=== PATIENT | female | born 2000 | race African-American/Black ===

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

== ENCOUNTER 2018-06-22 09:02 | Emergency (ER) | payer MEDICAID ==
[~2018-06-22] VITALS: Ht 165.1 cm; Wt 62.0 kg
[2018-06-22] MEDS ORDERED: SODIUM CHLORIDE 0.9% 1,000 ML IV ONE (09:54)
[2018-06-22] MEDS ORDERED: ONDANSETRON HCL 4MG/2ML INJ IV STA (10:23)
[2018-06-22] MEDS ORDERED: SODIUM CHLORIDE 0.9% 1000ML BAG (SEPSIS BOLUS) IV ONE (10:30)
[2018-06-22] MEDS ORDERED: KETOROLAC 30MG/ML VIAL IV ONE (11:15)
[2018-06-22] MEDS ORDERED: ACETAMINOPHEN 325MG TABLET PO ONE (11:15)
[2018-06-22 11:22] LABS: HEMATOCRIT. 39.4 % (36.0-48.0); HEMOGLOBIN. 13.4 g/dL (12.0-16.0); MEAN PLATELET VOLUME 10.1 fl (7.4-10.4); PLATELET 190 x1000/uL (130-400); RED BLOOD CELL COUNT 4.33 mill/uL (4.2-5.4); RED CELL DISTRIBUTION WIDTH 12.5 % (11.6-14.6)
[2018-06-22 11:24] LABS: CHLORIDE 105 mEq/L (98-107)
[2018-06-22 11:28] LABS: ETHANOL BLOOD < 10 mg/dL
[2018-06-22 11:29] LABS: HCG SCREEN NEGATIVE
[2018-06-22 11:32] LABS: CREATINE KINASE 58 IU/L (26-192); INR 1.1
[2018-06-22 11:35] LABS: CREATINE KINASE MB FRACTION < 1.0 ng/mL (0.5-3.6)
[2018-06-22 11:52] LABS: PLATELET ESTIMATE NORMAL
[2018-06-22] MEDS ORDERED: OSELTAMIVIR 75MG CAPSULE PO ONE (12:00)
[2018-06-22] MEDS ORDERED: POTASSIUM CHLORIDE 20MEQ TABLET SR PO ONE (12:15)
[2018-06-22] MEDS ORDERED: MAGNESIUM 1 G PREMIX 100 ML IV ONE (12:15)
[2018-06-22 14:29] LABS: CLARITY URINE CLEAR (CLEAR); COLOR URINE YELLOW (YELLOW); KETONES URINE NEGATIVE (NEGATIVE); LEUKOCYTE ESTERASE URINE 1+ (NEGATIVE); NITRITE URINE NEGATIVE (NEGATIVE); OCCULT BLOOD URINE NEGATIVE (NEGATIVE); PH URINE 5.5 (4.5-8.0); PROTEIN URINE NEGATIVE (NEGATIVE); SPECIFIC GRAVITY URINE 1.014 (1.005-1.030); UROBILINOGEN URINE 0.2 E.U./dL (0.2-1.0)
[2018-06-22 14:55] LABS: *AMPHETAMINES SCREEN URINE NEGATIVE (NEGATIVE); *BARBITURATES SCREEN URINE NEGATIVE (NEGATIVE); *BENZODIAZEPINES SCREEN URINE NEGATIVE (NEGATIVE)
[2018-06-22 14:56] LABS: *COCAINE SCREEN URINE NEGATIVE (NEGATIVE); METHADONE URINE SCREEN NEGATIVE (NEGATIVE); OPIATES URINE SCREEN NEGATIVE (NEGATIVE); PHENCYCLIDINE URINE SCREEN NEGATIVE (NEGATIVE)
[2018-06-22 15:03] LABS: CANNABINOID URINE SCREEN PRESUMTIVE POSITIVE (NEGATIVE)
[2018-06-22] MEDS ORDERED: NITROFURANTOIN 100MG M/M CAPSULE PO ONE (15:15)
[2018-06-22 16:56] VITALS: BP 103/61
== END 2018-06-22 17:01 | disposition home or self-care (01) ==
LOC: ER 09:02
DX: J11.1 Influenza due to unidentified influenza virus with other respiratory manifestations (principal); N39.0 Urinary tract infection, site not specified; R03.0 Elevated blood-pressure reading, without diagnosis of hypertension; R00.0 Tachycardia, unspecified; R73.9 Hyperglycemia, unspecified; E87.8 Other disorders of electrolyte and fluid balance, not elsewhere classified; F12.90 Cannabis use, unspecified, uncomplicated
CPT/HCPCS: 36415; 71045; 80053; 80305; 80320; 81003; 81025; 82550; 82553; 83605; 83690; 83735; 84145; 84484; 84703; 85025; 85610; 87040; 87086; 87804; 93005; 96361; 96365; 96375; 99284; J1885; J2405; J3475; J7030; G0480

== ENCOUNTER 2019-05-15 09:17 | Emergency (ER) | payer SELFPAY ==
[~2019-05-15] VITALS: Ht 167.6 cm; Wt 60.0 kg
[2019-05-15] MEDS ORDERED: AZITHROMYCIN 500 MG TABLET PO ONE (11:15)
[2019-05-15] MEDS ORDERED: CEFTRIAXONE SODIUM 250 MG/VIAL IM ONE (11:15)
[2019-05-15] MEDS ORDERED: ONDANSETRON HCL 4MG TABLET ONE (11:45)
[2019-05-15 13:06] LABS: CLARITY URINE CLOUDY (CLEAR); COLOR URINE YELLOW (YELLOW); KETONES URINE 1+ (NEGATIVE); LEUKOCYTE ESTERASE URINE 3+ (NEGATIVE); NITRITE URINE NEGATIVE (NEGATIVE); OCCULT BLOOD URINE 1+ (NEGATIVE); PROTEIN URINE 1+ (NEGATIVE); SPECIFIC GRAVITY URINE 1.013 (1.005-1.030)
[2019-05-15 13:30] VITALS: BP 115/61
[2019-05-15] MEDS ORDERED: ONDANSETRON 4MG ODT PO ONE (13:45)
== END 2019-05-15 13:45 | disposition home or self-care (01) ==
LOC: ER 09:17
DX: N39.0 Urinary tract infection, site not specified (principal); A64 Unspecified sexually transmitted disease; Z88.0 Allergy status to penicillin; Z91.018 Allergy to other foods
CPT/HCPCS: 81003; 81025; 87086; 87210; 96372; 99283; J0696; Q0162

== ENCOUNTER 2020-10-30 06:45 | Emergency (ER) | payer MEDICAID ==
[~2020-10-30] VITALS: Ht 162.6 cm; Wt 57.0 kg
[2020-10-30 08:10] LABS: BASOPHILS % 0.3 % (0.0-2.0); EOSINOPHILS % 1.2 % (0.0-5.0); HEMATOCRIT. 39.3 % (36.0-48.0); HEMOGLOBIN. 13.2 g/dL (12.0-16.0); LYMPHOCYTES % 15.3 % (20.0-50.0); MEAN CORPUSCULAR HEMOGLOBIN 31.1 pg (28.0-32.0); MEAN CORPUSCULAR VOLUME 92.7 fL (81.0-99.0); MEAN PLATELET VOLUME 9.7 fl (7.4-10.4); MONOCYTES % 3.4 % (2.0-8.0); NEUTROPHILS % 79.8 % (40.0-76.0); PLATELET 216 x1000/uL (130-400); RED BLOOD CELL COUNT 4.24 mill/uL (4.2-5.4); RED CELL DISTRIBUTION WIDTH 12.8 % (11.6-14.6)
[2020-10-30 08:14] LABS: CHLORIDE 111 mEq/L (98-107)
[2020-10-30 08:40] LABS: B-HCG QUANTITATIVE 6624 mIU/mL (<3)
[2020-10-30 09:30] LABS: CLARITY URINE CLOUDY (CLEAR); COLOR URINE YELLOW (YELLOW); KETONES URINE 1+ (NEGATIVE); LEUKOCYTE ESTERASE URINE NEGATIVE (NEGATIVE); NITRITE URINE NEGATIVE (NEGATIVE); OCCULT BLOOD URINE NEGATIVE (NEGATIVE); PH URINE 5.5 (4.5-8.0); PROTEIN URINE NEGATIVE (NEGATIVE); SPECIFIC GRAVITY URINE 1.023 (1.005-1.030)
[2020-10-30] MEDS ORDERED: PREN-118 MT (10:16)
[2020-10-30 10:17] VITALS: BP 106/61
== END 2020-10-30 10:37 | disposition left against medical advice (07) ==
LOC: ER 06:45
DX: O26.851 Spotting complicating pregnancy, first trimester (principal); O98.311 Other infections with a predominantly sexual mode of transmission complicating pregnancy, first trimester; A56.11 Chlamydial female pelvic inflammatory disease; Z3A.01 Less than 8 weeks gestation of pregnancy
CPT/HCPCS: 36415; 76801; 80053; 81003; 81025; 84702; 85025; 86850; 86900; 99284

== ENCOUNTER 2023-07-30 10:53 | Emergency (ER) | payer MEDICAID ==
[~2023-07-30] VITALS: Ht 165.1 cm; Wt 60.0 kg
[~2023-07-30 10:53] MED LIST: PREN-118 MT
[2023-07-30 10:58] VITALS: BP 114/78; PULSE 106; RESP 20; TEMP 98.1; O2SAT 99
[2023-07-30 12:26] LABS: CLARITY URINE CLOUDY (CLEAR); COLOR URINE DARK YELLOW (YELLOW); GLUCOSE URINE NEGATIVE (NEGATIVE); KETONES URINE 2+ (NEGATIVE); LEUKOCYTE ESTERASE URINE 2+ (NEGATIVE); NITRITE URINE NEGATIVE (NEGATIVE); OCCULT BLOOD URINE NEGATIVE (NEGATIVE); PROTEIN URINE 1+ (NEGATIVE); SPECIFIC GRAVITY URINE 1.032 (1.005-1.030)
[2023-07-30 12:51] LABS: RBC URINE 0-2 /hpf (0-2); SQUAMOUS EPITHELIAL CELL URINE 2+ /lpf (RARE/1+); WBC URINE 15-25 /hpf (0-2)
[2023-07-30 12:52] LABS: BACTERIA URINE 1+; TRICHOMONAS URINE 1+; YEAST URINE NONE SEEN
[2023-07-30] MEDS ORDERED: METR-167 MT (13:50)
== END 2023-07-30 14:06 | disposition left against medical advice (07) ==
LOC: ER 11:43
DX: A59.9 Trichomoniasis, unspecified (principal); Z53.21 Procedure and treatment not carried out due to patient leaving prior to being seen by health care provider
CPT/HCPCS: 81003; 81025

== ENCOUNTER 2023-08-14 07:47 | Emergency (ER) | payer MEDICAID ==
[~2023-08-14] VITALS: Ht 165.1 cm; Wt 68.0 kg
[~2023-08-14 07:47] MED LIST changes: +METR-167 MT
[2023-08-14 07:57] VITALS: BP 148/83; TEMP 98.2; O2SAT 100
[2023-08-14 07:59] VITALS: PULSE 100
[2023-08-14 09:35] VITALS: RESP 17
[2023-08-14] MEDS: HYDROCODONE/ACETAMINOPHEN 5/325MG TABLET PO STA (09:35)
== END 2023-08-14 08:23 | disposition left against medical advice (07) ==
LOC: ER 07:50
DX: S42.002A Fracture of unspecified part of left clavicle, initial encounter for closed fracture (principal); M25.512 Pain in left shoulder; Z88.0 Allergy status to penicillin; Y08.89XA Assault by other specified means, initial encounter; Y93.89 Activity, other specified; Y92.89 Other specified places as the place of occurrence of the external cause; Y99.8 Other external cause status
CPT/HCPCS: 99283